=== PATIENT | female | born 1985 | race Caucasian/White ===

== ENCOUNTER 2016-05-29 12:03 | Inpatient (IN) | payer MEDICAID ==
[~2016-05-29] VITALS: Ht 167.6 cm; Wt 107.4 kg
[~2016-05-29 12:03] MED LIST: BECL0.07; BUPR75TA4 PO; BUSP5TAB22 PO; CARI250T8; CLON0.5T PO; GABA100C; GLYBERIDE; METFORMIN; TRASADONE
[2016-05-29 12:47] LABS: Urine RBC None Seen /hpf (0 - 4)
[2016-05-29 13:04] LABS: Urine Bilirubin Negative (Negative); Urine Blood Negative /uL (Negative); Urine Color Yellow (Yellow); Urine Glucose Normal (Normal); Urine Ketone Negative (Negative); Urine Nitrite Negative (Negative); Urine Squamous Epithelial Cell FEW /hpf (<5); Urine Urobilinogen Normal (Negative)
[2016-05-29 14:20] LABS: Basophils # (auto) 0 uL; Basophils % (auto) 0.3 % (0.0-2.0); Eosinophils # (auto) 0.4 uL; Eosinophils % (auto) 3.5 % (0.0-7.0); Hematocrit 45.7 % (36.0-46.0); Lymphocytes # (auto) 2.4 uL; Mean Corpuscular Hemoglobin 29.4 pg (28.0-32.0); Mean Corpuscular Hgb Conc. 32.9 g/dL (32.0-36.0); Mean Corpuscular Volume 89.3 fL (80.0-100.0); Mean Platelet Volume 7.6 fL (7.4-10.4); Monocytes # (auto) 0.8 uL; Neutrophils # (auto) 8.2 uL; Neutrophils % (auto) 69.2 % (37.0-80.0); Platelet Count (auto) 479 10^3/uL (140-450); Red Cell Distribution Width 13.8 % (11.6-16.0); White Blood Cell 11.9 10^3/uL (4.4-10.8)
[2016-05-29 14:46] LABS: Albumin 3.7 g/dL (3.4-5.0); BUN/Creatinine Ratio 14.9; Bilirubin, Total 0.3 mg/dL (0.2-1.0); Calcium 8.8 mg/dL (8.5-10.1); Potassium 4.3 mmol/L (3.5-5.1); Total Protein 8.2 g/dL (6.4-8.2)
[2016-05-29] MEDS ORDERED: cefTRIAXone 1GM/50ML D5W 50 ML IV ONE (17:30)
[2016-05-29] MEDS ORDERED: metroNIDAZOLE 500MG/100ML 100 ML IV ONE (17:30)
[2016-05-29] MEDS ORDERED: MORPHINE SULF INJ 2 MG/ML SYRINGE 1ML IV PRN (19:00)
[2016-05-29] MEDS ORDERED: clonazePAM 0.5 MG TAB PO PRN (19:00)
[2016-05-29] MEDS ORDERED: LEVOFLOXACIN 500MG 100 ML IV ONE (19:00)
[2016-05-29] MEDS ORDERED: ACETAMINOPHEN 500 MG TAB PO PRN (19:00)
[2016-05-29] MEDS ORDERED: HYDROcodone-ACET 5/325MG TAB PO PRN (19:00)
[2016-05-29] MEDS ORDERED: DEXTROSE (50%) 50ML SYRG IV PRN (19:00)
[2016-05-29] MEDS: SODIUM CHLORIDE 0.9% 1,000 ML IV SCH (19:03)
[2016-05-29] MEDS: PROMETHAZINE HCL 25 MG/ML 1ML IV PRN (20:07)
[2016-05-29 20:30] VITALS: BP 108/66
[2016-05-29 20:45] VITALS: BP 108/66
[2016-05-29] MEDS: buPROPion HCL 75 MG TAB PO SCH (21:34)
[2016-05-29] MEDS: FAMOTIDINE 20 MG TAB PO SCH (21:34)
[2016-05-29] MEDS: busPIRone HCL 10 MG TAB PO SCH (21:34)
[2016-05-29] MEDS: InsuLIN REG 1unit/0.01ml Soln (100units/ml) SC SCH (21:35)
[2016-05-29] MEDS: ACCU-CHEK COMFORT CURVE STRIP VI SCH (21:35)
[2016-05-29] MEDS: GABAPENTIN 100 MG CAP PO SCH (21:35)
[2016-05-29] MEDS ORDERED: TOPI50TA32 PO (21:43)
[2016-05-29] MEDS ORDERED: GABA-339 PO (21:43)
[2016-05-29] MEDS ORDERED: TRAM50TA2 PO (21:43)
[2016-05-29] MEDS: metroNIDAZOLE 500MG/100ML 100 ML IV SCH (23:17)
[2016-05-29] MEDS: MORPHINE SULFATE 4 MG/ML SYRG IV PRN (23:17)
[2016-05-30] MEDS ORDERED: TRAZ100T2 PO (01:23)
[2016-05-30] MEDS ORDERED: TEMA30CA PO (01:23)
[2016-05-30] MEDS ORDERED: QUET50TA PO (01:24)
[2016-05-30] MEDS: PROMETHAZINE HCL 25 MG/ML 1ML IV PRN (03:16)
[2016-05-30] MEDS: MORPHINE SULFATE 4 MG/ML SYRG IV PRN ×5 (03:16→20:38)
[2016-05-30 05:00] VITALS: BP 114/54
[2016-05-30] MEDS: metroNIDAZOLE 500MG/100ML 100 ML IV SCH (06:05)
[2016-05-30] MEDS: GABAPENTIN 100 MG CAP PO SCH ×3 (06:05→21:18)
[2016-05-30] MEDS: ACCU-CHEK COMFORT CURVE STRIP VI SCH ×4 (06:14→21:20)
[2016-05-30] MEDS: SODIUM CHLORIDE 0.9% 1,000 ML IV SCH (06:14)
[2016-05-30] MEDS ORDERED: LOR05T PO (06:16)
[2016-05-30 06:17] LABS: Basophils # (auto) 0.1 uL; Basophils % (auto) 0.5 % (0.0-2.0); Eosinophils # (auto) 0.4 uL; Eosinophils % (auto) 4.1 % (0.0-7.0); Lymphocytes # (auto) 3.1 uL; Lymphocytes % (auto) 29.3 % (10.0-50.0); Mean Corpuscular Hemoglobin 29.7 pg (28.0-32.0); Mean Corpuscular Hgb Conc. 33.3 g/dL (32.0-36.0); Mean Corpuscular Volume 89.3 fL (80.0-100.0); Mean Platelet Volume 7.5 fL (7.4-10.4); Monocytes % (auto) 9.7 % (0.0-12.0); Neutrophils % (auto) 56.4 % (37.0-80.0); Platelet Count (auto) 401 10^3/uL (140-450); Red Cell Distribution Width 13.5 % (11.6-16.0); White Blood Cell 10.7 10^3/uL (4.4-10.8)
[2016-05-30] MEDS: InsuLIN REG 1unit/0.01ml Soln (100units/ml) SC SCH ×4 (06:18→21:20)
[2016-05-30 06:48] LABS: Albumin 3.2 g/dL (3.4-5.0); BUN/Creatinine Ratio 18.8; Bilirubin, Total 0.4 mg/dL (0.2-1.0); Calcium 8.1 mg/dL (8.5-10.1); Potassium 3.8 mmol/L (3.5-5.1)
[2016-05-30 09:00] VITALS: BP 113/65
[2016-05-30] MEDS: busPIRone HCL 10 MG TAB PO SCH ×2 (09:25→21:19)
[2016-05-30] MEDS: buPROPion HCL 75 MG TAB PO SCH ×2 (09:25→21:19)
[2016-05-30] MEDS: FAMOTIDINE 20 MG TAB PO SCH ×2 (09:25→21:18)
[2016-05-30] MEDS ORDERED: LEVOFLOXACIN 500MG 100 ML IV SCH (10:00)
[2016-05-30] MEDS ORDERED: GASTROGRAFIN 120 ML SOL ONE (12:45)
[2016-05-30 13:00] VITALS: BP 127/67
[2016-05-30] MEDS: metroNIDAZOLE 500 MG TAB PO SCH ×2 (14:47→21:18)
[2016-05-30 17:00] VITALS: BP 124/70
[2016-05-30] MEDS ORDERED: SUCRALFATE 1 GM/10 ML ORAL SUSP GT SCH (17:00)
[2016-05-30] MEDS: SUCRALFATE 1 GM/10 ML ORAL SUSP PO SCH (17:03)
[2016-05-30 22:00] VITALS: BP 113/57
[2016-05-31] MEDS: MORPHINE SULFATE 4 MG/ML SYRG IV PRN ×2 (02:12→09:31)
[2016-05-31 05:38] LABS: Basophils # (auto) 0 uL; Basophils % (auto) 0.5 % (0.0-2.0); Eosinophils # (auto) 0.4 uL; Eosinophils % (auto) 4.2 % (0.0-7.0); Hematocrit 42.9 % (36.0-46.0); Hemoglobin 14.3 g/dL (12.2-16.2); Lymphocytes # (auto) 2.8 uL; Lymphocytes % (auto) 27.6 % (10.0-50.0); Mean Corpuscular Hemoglobin 29.9 pg (28.0-32.0); Mean Corpuscular Hgb Conc. 33.2 g/dL (32.0-36.0); Mean Corpuscular Volume 90.1 fL (80.0-100.0); Mean Platelet Volume 7.7 fL (7.4-10.4); Monocytes # (auto) 0.9 uL; Monocytes % (auto) 8.8 % (0.0-12.0); Neutrophils # (auto) 5.9 uL; Neutrophils % (auto) 58.9 % (37.0-80.0); Platelet Count (auto) 396 10^3/uL (140-450); Red Cell Distribution Width 13.7 % (11.6-16.0)
[2016-05-31 06:00] LABS: Albumin 3.4 g/dL (3.4-5.0); BUN/Creatinine Ratio 15.4; Bilirubin, Total 0.4 mg/dL (0.2-1.0); Calcium 8.5 mg/dL (8.5-10.1); Potassium 3.9 mmol/L (3.5-5.1); Total Protein 7.1 g/dL (6.4-8.2)
[2016-05-31] MEDS: SUCRALFATE 1 GM/10 ML ORAL SUSP PO SCH ×2 (06:31→11:16)
[2016-05-31] MEDS: InsuLIN REG 1unit/0.01ml Soln (100units/ml) SC SCH ×2 (06:31→11:30)
[2016-05-31] MEDS: GABAPENTIN 100 MG CAP PO SCH (06:31)
[2016-05-31] MEDS: ACCU-CHEK COMFORT CURVE STRIP VI SCH ×2 (06:31→11:35)
[2016-05-31] MEDS: metroNIDAZOLE 500 MG TAB PO SCH (06:31)
[2016-05-31 09:00] VITALS: BP 108/59
[2016-05-31] MEDS: FAMOTIDINE 20 MG TAB PO SCH (09:31)
[2016-05-31] MEDS: buPROPion HCL 75 MG TAB PO SCH (09:31)
[2016-05-31] MEDS: busPIRone HCL 10 MG TAB PO SCH (09:32)
[2016-05-31] MEDS ORDERED: LEVOFLOXACIN 500 MG TAB PO SCH (10:00)
[2016-05-31] MEDS ORDERED: OMEP20TA PO (12:04)
[2016-05-31] MEDS ORDERED: METR500T PO (12:04)
[2016-05-31 12:42] VITALS: BP 124/83
== END 2016-05-31 13:15 | disposition home or self-care (01) | DRG 241 ==
LOC: ER 12:03 → CENTRAL 12:04
PROVIDERS: ADMIT Internal Medicine; ATTEND Hospitalist
DX: K29.00 Acute gastritis without bleeding (principal); E11.65 Type 2 diabetes mellitus with hyperglycemia; I10 Essential (primary) hypertension; F32.9 Major depressive disorder, single episode, unspecified; E66.01 Morbid (severe) obesity due to excess calories; K21.9 Gastro-esophageal reflux disease without esophagitis; F41.9 Anxiety disorder, unspecified; G89.29 Other chronic pain; M54.9 Dorsalgia, unspecified; D64.9 Anemia, unspecified; M54.2 Cervicalgia; R35.0 Frequency of micturition; F17.210 Nicotine dependence, cigarettes, uncomplicated; D72.829 Elevated white blood cell count, unspecified; Z68.38 Body mass index [BMI] 38.0-38.9, adult; Z90.710 Acquired absence of both cervix and uterus; Z98.51 Tubal ligation status; Z83.3 Family history of diabetes mellitus; Z82.49 Family history of ischemic heart disease and other diseases of the circulatory system; Z80.9 Family history of malignant neoplasm, unspecified; Z79.899 Other long term (current) drug therapy; Z79.84 Long term (current) use of oral hypoglycemic drugs; Z88.1 Allergy status to other antibiotic agents; Z88.0 Allergy status to penicillin; Z88.2 Allergy status to sulfonamides
CPT/HCPCS: 36415; 74176; 74250; 80053; 81001; 82150; 82962; 83036; 83690; 85025; 85652; 94761; 96374; 96375; J0696; J1815; J1956; J3490

== ENCOUNTER 2018-06-04 15:43 | Emergency (ER) | payer MEDICAID ==
[~2018-06-04] VITALS: Ht 167.6 cm; Wt 98.9 kg
[~2018-06-04 15:43] MED LIST changes: -BECL0.07; -CARI250T8; +GABA-339 PO; -GABA100C; -GLYBERIDE; +LORA-654 PO; -METFORMIN; +METR500T PO; +OMEP20TA PO; +QUET50TA PO; +TEMA30CA PO; +TOPI50TA32 PO; +TRAM50TA2 PO; -TRASADONE; +TRAZ100T2 PO
[2018-06-04 15:59] VITALS: BP 137/83
[2018-06-04] MEDS ORDERED: PROMETHAZINE HCL 25 MG/ML 1ML IM ONE (17:45)
[2018-06-04] MEDS ORDERED: MEPERIDINE HCL (50 MG/ML) 1 ML VIAL IM ONE (17:45)
[2018-06-04] MEDS ORDERED: KETOROLAC TROMETH 60MG/2ML VIAL IM ONE (18:00)
== END 2018-06-04 18:05 | disposition home or self-care (01) ==
LOC: ER 15:48
DX: M54.16 Radiculopathy, lumbar region (principal); M25.552 Pain in left hip; E11.9 Type 2 diabetes mellitus without complications; I10 Essential (primary) hypertension; F17.210 Nicotine dependence, cigarettes, uncomplicated; Z98.51 Tubal ligation status; Z90.710 Acquired absence of both cervix and uterus; Z76.0 Encounter for issue of repeat prescription; Z88.0 Allergy status to penicillin; Z88.1 Allergy status to other antibiotic agents; Z88.2 Allergy status to sulfonamides
CPT/HCPCS: 72100; 73502; 96372; 99283; J1885

== ENCOUNTER 2019-07-02 18:19 | Emergency (ER) | payer MEDICARE, MEDICAID ==
[~2019-07-02] VITALS: Ht 170.2 cm; Wt 84.4 kg
[~2019-07-02 18:19] MED LIST changes: -LORA-654 PO; +LORA0.5T12 PO; -TRAZ100T2 PO; +TRAZ100T3 PO
[2019-07-02 22:12] VITALS: BP 112/77
== END 2019-07-02 22:19 | disposition home or self-care (01) ==
LOC: ER 18:19
DX: M23.8X2 Other internal derangements of left knee (principal); J02.9 Acute pharyngitis, unspecified; E11.9 Type 2 diabetes mellitus without complications; I10 Essential (primary) hypertension; F17.210 Nicotine dependence, cigarettes, uncomplicated; Z98.51 Tubal ligation status; Z90.710 Acquired absence of both cervix and uterus; Z88.0 Allergy status to penicillin; Z88.1 Allergy status to other antibiotic agents; Z88.2 Allergy status to sulfonamides; Z79.899 Other long term (current) drug therapy
CPT/HCPCS: 73562

== ENCOUNTER 2021-02-24 06:06 | Emergency (ER) | payer MEDICAID ==
[~2021-02-24] VITALS: Ht 170.2 cm; Wt 84.8 kg
[~2021-02-24 06:06] MED LIST changes: -LORA0.5T12 PO; +LORA0.5T20 PO
[2021-02-24 08:27] LABS: Urine Bacteria NONE SEEN /hpf (None Seen); Urine Blood Negative /uL (Negative); Urine Mucus FEW (None Seen); Urine Specific Gravity 1.043 (1.001-1.035); Urine WBC 1 /hpf (0 - 5)
[2021-02-24 08:28] LABS: Basophils # (auto) 0.2 10 ^3/uL (0-0.2); Eosinophils # (auto) 0.3 10 ^3/uL (0-0.8); Eosinophils % (auto) 1.6 % (0.0-7.0); Hematocrit 44.9 % (36.0-46.0); Hemoglobin 15.1 g/dL (12.2-16.2); Lymphocytes # (auto) 3.9 10 ^3/uL (0.4-5.4); Lymphocytes % (auto) 25.1 % (10.0-50.0); Mean Corpuscular Hemoglobin 29.6 pg (28.0-32.0); Mean Corpuscular Hgb Conc. 33.8 g/dL (32.0-36.0); Mean Corpuscular Volume 87.8 fL (80.0-100.0); Monocytes % (auto) 6.6 % (0.0-12.0); Neutrophils # (auto) 10.2 10 ^3/uL (1.6-8.6); Neutrophils % (auto) 65.7 % (37.0-80.0); Nucleated Red Blood Cells % 0.1 %; Red Blood Cells 5.11 10^6/uL (4.0-5.20); Red Cell Distribution Width 13.3 % (11.8-14.3); White Blood Cell 15.5 10^3/uL (4.4-10.8)
[2021-02-24 08:45] LABS: Alanine Aminotransferase 23 U/L (13-56); Albumin 3.9 g/dL (3.4-5.0); Amylase 30 U/L (25-115); Anion Gap 8 (5-15); Blood Urea Nitrogen 11 mg/dL (7-18); Calcium 8.7 mg/dL (8.5-10.1); Carbon Dioxide 19 mmol/L (21-32); Chloride 111 mmol/L (98-107); Glucose 89 mg/dL (74-106); Lipase 78 U/L (73-393); Potassium 3.7 mmol/L (3.5-5.1); Sodium 138 mmol/L (136-145)
[2021-02-24 08:51] LABS: Alkaline Phosphatase 79 U/L (45-117); Aspartate Aminotransferase 26 U/L (15-37); BUN/Creatinine Ratio 15.3; Bilirubin, Total 0.2 mg/dL (0.2-1.0); GFR African American 117 mL/min; GFR Non-African American 97 mL/min; Total Protein 7.7 g/dL (6.4-8.2)
[2021-02-24] MEDS ORDERED: PROMETHAZINE HCL 25 MG/ML 1ML IV PRN (09:00)
[2021-02-24] MEDS ORDERED: HYDROmorphone HCL 2 MG/ML VL IV ONE ×2 (09:00→12:00)
[2021-02-24] MEDS ORDERED: SODIUM CHLORIDE 0.9% 500 ML IVB ONE (09:00)
[2021-02-24] MEDS ORDERED: SODIUM CHLORIDE 0.9% 1,000 ML IV ONE (09:00)
[2021-02-24 10:45] VITALS: BP 124/76
== END 2021-02-24 13:47 | disposition home or self-care (01) ==
LOC: ER 06:06
DX: R10.32 Left lower quadrant pain (principal); I10 Essential (primary) hypertension; L74.512 Primary focal hyperhidrosis, palms; L74.513 Primary focal hyperhidrosis, soles; E11.9 Type 2 diabetes mellitus without complications; E78.5 Hyperlipidemia, unspecified; E03.9 Hypothyroidism, unspecified; F17.210 Nicotine dependence, cigarettes, uncomplicated; Z90.710 Acquired absence of both cervix and uterus; Z86.2 Personal history of diseases of the blood and blood-forming organs and certain disorders involving the immune mechanism; Z79.899 Other long term (current) drug therapy; Z88.0 Allergy status to penicillin; Z88.1 Allergy status to other antibiotic agents; Z88.2 Allergy status to sulfonamides
CPT/HCPCS: 36415; 71046; 74176; 76830; 76856; 80053; 81001; 82150; 83690; 83735; 84484; 85025; 96361; 96374; 96376; 99285; J1170; J7040; 93005

== ENCOUNTER 2021-09-04 11:38 | Emergency (ER) | payer MEDICAID ==
[~2021-09-04] VITALS: Ht 170.2 cm; Wt 83.9 kg
[2021-09-04 13:57] LABS: Urine Bacteria NONE SEEN /hpf (None Seen); Urine Blood Negative /uL (Negative); Urine Specific Gravity 1.023 (1.001-1.035); Urine WBC <1 /hpf (0 - 5)
[2021-09-04 14:09] LABS: Basophils # (auto) 0.1 10 ^3/uL (0-0.2); Basophils % (auto) 1.4 % (0.0-2.0); Eosinophils # (auto) 0.3 10 ^3/uL (0-0.8); Eosinophils % (auto) 2.7 % (0.0-7.0); Hematocrit 42.2 % (36.0-46.0); Hemoglobin 14.3 g/dL (12.2-16.2); Lymphocytes # (auto) 3.5 10 ^3/uL (0.4-5.4); Lymphocytes % (auto) 37.3 % (10.0-50.0); Mean Corpuscular Hemoglobin 30.5 pg (28.0-32.0); Mean Corpuscular Hgb Conc. 33.9 g/dL (32.0-36.0); Monocytes # (auto) 0.8 10 ^3/uL (0-1.3); Monocytes % (auto) 8.3 % (0.0-12.0); Neutrophils # (auto) 4.7 10 ^3/uL (1.6-8.6); Neutrophils % (auto) 50.3 % (37.0-80.0); Nucleated Red Blood Cells % 0.2 %; Red Blood Cells 4.69 10^6/uL (4.0-5.20); Red Cell Distribution Width 13.9 % (11.8-14.3); White Blood Cell 9.3 10^3/uL (4.4-10.8)
[2021-09-04 14:42] LABS: Albumin 3.7 g/dL (3.4-5.0); Calcium 8.8 mg/dL (8.5-10.1); Magnesium 1.9 mg/dL (1.6-2.6); Potassium 3.6 mmol/L (3.5-5.1)
[2021-09-04 14:46] LABS: BUN/Creatinine Ratio 17.6; Bilirubin, Total 0.3 mg/dL (0.2-1.0); Total Protein 7.8 g/dL (6.4-8.2)
[2021-09-04] MEDS ORDERED: LISI-275 PO (15:52)
[2021-09-04] MEDS ORDERED: cloNIDine HCL 0.1 MG TAB PO ONE (16:00)
[2021-09-04] MEDS ORDERED: ASPirin 81 mg TAB PO ONE (16:00)
[2021-09-04 16:07] VITALS: BP 138/97
== END 2021-09-04 16:29 | disposition home or self-care (01) ==
LOC: ER 11:38
DX: R07.89 Other chest pain (principal); I10 Essential (primary) hypertension; F17.210 Nicotine dependence, cigarettes, uncomplicated; E11.9 Type 2 diabetes mellitus without complications; E78.5 Hyperlipidemia, unspecified; Z98.51 Tubal ligation status; Z90.710 Acquired absence of both cervix and uterus; Z88.1 Allergy status to other antibiotic agents; Z88.0 Allergy status to penicillin; Z88.2 Allergy status to sulfonamides
CPT/HCPCS: 36415; 71046; 80053; 81001; 83735; 84484; 85025; 93005